=== PATIENT | female | born 1960 | race Caucasian/White ===

== ENCOUNTER → 2018-04-24 | Outpatient (CLI) | payer SELFPAY ==
[~2018-04-24] MED LIST: ACET-3017 PO; ALB0.5 INH; ALB17R INH; ALBU8.5H12 IH; AZI250 PO; AZIT-1 PO; BRONCHAID PO; CEFU250T11 PO; CEP250 PO; CEP500 PO; DIA5 PO; GUAI-583 PO; GUAI200T22 PO; GUAI480S48 PO; HYDR-2946 PO; IBUP800T37 PO; KET10 PO; ONDA4TAB PO; OXY10 PO; OXYC-689 PO; OXYC-865 PO; PER PO; PRE10 PO; PRE20 PO; PRED-1 PO; PRED20TA6 PO
--- NOTE | 2018-04-24 17:18 | RADIOLOGY IMAGING REPORT ---
[place] [facility] [place] NAME: Shara Hatsings : 1960 MR: [id number] V: [id number] EXAM DATE: ORDERING PHYSICIAN: ALFREDO SORENSEN TECHNOLOGIST: [place] [facility] [place] : 1960 Visit/Account:[id number] Date of Sevice: 04/24/2018 Exam type: CHEST PA LAT History: Persistent cough, asthma, previous smoker Comparison: July 09, 2016 Findings: The lungs are free of acute effusions, infiltrates or edema. Cardiac silhouette is normal in size. The trachea is in midline. There is a foreign body projecting along the undersurface of the left danny ast which may be on the patient's skin.. IMPRESSION: 1. No acute cardiopulmonary process is seen Report Dictated By: Jade Pat MD at 04/24/2018 5:11 PM Report E-Signed By: Jade Pat MD at 04/24/2018 5:12 PM WSN:[id number]
== END ==
LOC: RAD 16:03
PROVIDERS: ATTEND Nurse Practitioner
DX: R05 Cough (principal)
CPT/HCPCS: 71046

== ENCOUNTER → 2018-05-24 | Outpatient (CLI) | payer OTHER | LOC: RESP 20:06 | PROVIDERS: ATTEND Nurse Practitioner | DX: G47.33 Obstructive sleep apnea (adult) (pediatric) (principal); G47.61 Periodic limb movement disorder ==

== ENCOUNTER → 2018-09-15 | Outpatient (CLI) | payer OTHER | LOC: RESP 09:14 | PROVIDERS: ATTEND Nurse Practitioner | DX: G47.33 Obstructive sleep apnea (adult) (pediatric) (principal); G47.61 Periodic limb movement disorder ==